=== PATIENT | female | born 1960 | race Caucasian/White ===

== ENCOUNTER 2025-06-27 18:05 | Emergency (ER) | payer BC, SELFPAY ==
[2025-06-27 18:06] VITALS: BP 170/103
[2025-06-27 18:33] LABS: Hematocrit 47.6 % (37.0-47.0); Hemoglobin 16.1 g/dL (12.0-16.0); Mean Corp Hgb Conc. 33.8 g/dL (33.0-37.0); Mean Corpuscular Volume 84.1 fL (81.0-99.0); Nucleated Red Blood Cells % 0 %; Platelet Count 361 10^3/uL (130-400); Red Cell Dist. Width 12.2 % (11.5-14.5)
[2025-06-27 18:52] LABS: ALT (SGPT) 19 U/L (0-35); AST (SGOT) 18 U/L (14-36); Albumin 5.3 g/dl (3.5-5.0); Alkaline Phosphatase 66 U/L (38-126); Blood Urea Nitrogen 18 mg/dl (7-17); Calcium 10.3 mg/dl (8.4-10.2); Carbon Dioxide 28 mmol/L (22-30); Chloride 99 mmol/L (98-107); Glucose 125 mg/dl (70-99); Lipase 99 U/L (23-300); Potassium 4.1 mmol/L (3.5-5.1); Sodium 136 mmol/L (135-145); Total Protein 8.5 g/dl (6.3-8.2); eGFR > 60.00
[2025-06-27 19:19] LABS: Urine Character Slightly Cloudy (Clear)
[2025-06-27] MEDS: TORADOL 15 MG IV (19:23)
[2025-06-27] MEDS: NSS 1000 IV (19:23)
--- NOTE | 2025-06-27 19:23 | ED.GENMED ---
History of Present Illness
General
Chief Complaint: Back Pain
Source: patient and family (Daughter at bedside)
Exam Limitations: none
Time Seen by Provider: 06/27/25 18:46
Nursing documentation reviewed up to this point in time: agreed with
History of Present Illness
History of Present Illness:
Patient is a 65-year-old female with history hypertension who presents to the emergency department for evaluation of left lower back pain associated vomiting. Patient describes approximately 2�3 weeks of left lower back pain with acute worsening
yesterday afternoon around 3 PM. She describes it as a sharp pain in her left lower back with some radiation around her side however does not extend down her leg. Today, she had a few episodes of vomiting. Patient denies any fever or chills. No
dysuria. No chest pain or shortness of breath. No numbness/tingling or weakness and lower extremities. No bowerl/bladder incontinence.
She has not had any inciting injury or trauma.
Of note � patient was seen at an outside emergency department a few weeks ago for similar pain where she had a negative work-up at that time. She has since followed up with a spine surgeon and has an MRI scheduled for June. She has been taking
Tylenol and Motrin with only temporary relief. She did recently finish a medrol dose pack which did temporarily improve her symptoms.
Past History
Past History
ED Past Medical History: HTN
ED Past Surgical History: None
Review of Systems
Review of Systems
Allergies reviewed?: Yes
All Other Systems: ROS reviewed and negative except as documented in HPI and ROS
Phy Exam
Physical Exam
Physical Exam:
Vitals: Hypertensive, otherwise vital signs stable. Afebrile
General: Patient is uncomfortable appearing due to pain.
Skin: Warm and dry, no rashes or lesions
Head: Normocephalic, atraumatic
Eyes: Sclera nonicteric.
Throat: Protecting airway
Neck: Normal ROM, no cervical spine tenderness, no meningismus
Cardiac: Regular rate and rhythm, no murmurs.
Pulm: Normal respiratory effort. Lungs clear bilaterally.
Abdomen: Abdomen soft and nontender
Back: Reproducible tenderness in left paralumbar region. No rash. Negative straight leg raise bilaterally.
Extremities: No evidence of cyanosis or edema. Strength 5/5 in bilateral upper and lower extremities. Sensation intact.
Neuro: AAOx3. Grossly intact.
Psychiatric: Normal affect.
Course
Orders/Labs/Results
Orders:
Orders
06/27/25 18:23
Urinalysis Reflex To Culture Urgent
Date Specimen was Collected: 06/27/25
Time Specimen was Collected: 18:16
Urine Microscopic Reflex Cult Urgent
06/27/25 18:27
Complete Blood Count/With Diff Urgent
Comprehensive Metabolic Panel Urgent
Lipase Urgent
06/27/25 19:11
CT Abd/pelvis W Iv Cont Urgent
Comment:
Reason For Exam: L lower back pain, vomiting
0.9% Sodium Chloride 1000 ml [Nss] 1,000 ml IV BOLUS
Ketorolac [Toradol] 15 mg IV NOW STA
Lidocaine [Lidocaine 4% Patch] 1 patch TOPICAL NOW STA
Apply Lidocaine patch(s) to:: Left lower back
06/27/25 21:02
HYDROmorphone [Dilaudid] 0.5 mg IV NOW STA
Abnormal Lab Results
06/27/25 06/27/25
18:23 18:27
WBC 11.7 H 10^3/uL
(4.8-10.8)
RBC 5.66 H 10^6/uL
(4.20-5.40)
Hgb 16.1 H g/dL
(12.0-16.0)
Hct 47.6 H %
(37.0-47.0)
Abs Immat Gran (auto) 0.1 H 10^3/uL
(0-0.05)
Absolute Neuts (auto) 8.2 H 10^3/uL
(1.4-6.5)
Absolute Monos (auto) 0.7 H 10^3/uL
(0.1-0.6)
BUN 18 H mg/dl
(7-17)
Glucose 125 H mg/dl
(70-99)
Calcium 10.3 H mg/dl
(8.4-10.2)
Total Protein 8.5 H g/dl
(6.3-8.2)
Albumin 5.3 H g/dl
(3.5-5.0)
Ur Occult Blood Reflex 2+ A
(Negative)
Urine RBC 3-6 A /HPF
(0-2)
Urine Bacteria (Reflex) Few A
(Negative)
Urine Albumin (Reflex) 2+ A
(Neg - Trace)
06/27/25 18:27
06/27/25 18:27
Vital Signs
Initial and Last Documented VS:
Initial Vital Signs
Temp Pulse Resp BP Pulse Ox
98.3 F 85 18 170/103 97
06/27/25 18:06 06/27/25 18:06 06/27/25 18:06 06/27/25 18:06 06/27/25 18:06
Last Documented Vital Signs
Temp Pulse Resp BP Pulse Ox
98.3 F 56 18 165/80 98
06/27/25 18:06 06/27/25 19:35 06/27/25 19:35 06/27/25 22:00 06/27/25 22:15
MDM/Problems Addressed
Differential Diagnosis Includes:
Not limited to: muscle spasm, radicular pain, renal colic, pyelonephritis, diverticulitis, etc
MDM/Problems Addressed:
65-year-old female with left lower back pain associated w/ a few episodes of vomiting. Pain worse with movement. Had similar episode two weeks ago with negative workup in outside emergency department. No fevers or urinary symptoms. Patient
hypertensive on arrival, otherwise stable.
On exam � she appears uncomfortable due to pain however nontoxic. Cardio/pulmonary assessment unremarkable. Abdomen benign. She does have reproducible tenderness in left paralumbar spinal region. No neurologic deficits concerning for cauda equine.
She has equal strength bilaterally.
Differential as above. Clinical picture seems most consistent with likely musculoskeletal etiology/ radicular pain, however with no trauma and vomiting � will work-up further to r/o alternative diagnosis.
ED plan: labs, UA, CT scan abdomen/pelvis w/ IV contrast. Will treat pain and reassess.
Update: Labs without clinically significant abnormalities. Mild leukocytosis. UA reveals no evidence of infection although few RBCs noted. CT scan without acute intra-abdominal pathology.
Patients pain is currently well controlled after medication here. Work up negative. Suspect likely musculoskeletal etiology. No findings suggestive for intra-abdominal source or vascular emergency.
Will discharge home with additional course of steroids and pain control. She has MRI scheduled and planning to follow-up with spine surgeon and start PT. Strict return precautions discussed.
Chronic conditions affecting care:
HTN
Acute Exacerbation and/or Progression of Chronic Illness:
Acutely hypertensive
*Radiology
Radiology exam reviewed: radiology read reviewed
*Pulse Oximetry
SaO2: 97
Oxygen Mode of Delivery: Room air
Patient hypoxic: no
*EKG
Interpreted by ED Provider?: NA
*Rolloff Driver Interpretation
Rate: Rolloff Driver- N/A
*Critical Care Note
Total Time (30-74mins, 75-104mins- exclusive of procedures): Not Applicable
ED Attending Note
-
Portions of this chart may have been created with voice recognition software.� Occasional wrong word or��sound alike� substitutions may have occurred due to the inherent limitations of voice recognition software.
Discharge Plan
Departure
Patient Disposition: Home (Routine Discharge)
Date of Disposition: 06/27/25
Time of Disposition: 22:20
Patient with high blood pressure during this ER visit?: Yes
Condition: Good
Covid-19: Not Applicable
Discharge Problem:
Low back pain
Instructions: Low Back Pain (DC), BLOOD PRESSURE
Prescriptions:
New
prednisone 10 mg Tablet
See Rx Instructions .ROUTE .COMPLEX Qty: 30 0RF
Rx Instructions:
Take By Mouth:
40 mg daily x3 days, 30 mg daily x3 days,
20 mg daily x3 days, 10 mg daily x3 days.
tramadol 50 mg tablet
50 mg PO Q6H PRN (Reason: Pain) Qty: 10 0RF
No Action
valsartan 80 mg Tablet
80 mg PO DAILY
Referrals:
UNKNOWN - PT DOES,NOT KNOW [Family Provider]
Activity Restrictions/Additional Instructions:
RETURN TO THE EMERGENCY DEPARTMENT ANY FEVER, INTRACTABLE PAIN, PERSISTENT VOMITING, URINARY SYMPTOMS, NUMBNESS/TINGLING OR WEAKNESS IN LOWER EXTREMITIES, LOSS OF BLADDER/BOWEL CONTROL, WORSENING IN CURRENT SYMPTOMS, OR ANY OTHER CONCERNS
- As discussed�your CT scan showed no acute abnormalities. Your urinalysis did show a few red blood cells. Please ensure this resolves with a urologist.
- You continue to take Tylenol and/or Motrin as needed for pain. For intractable pain, you can try tramadol. This may cause drowsiness you should not take prior to driving. You should not take tramadol in addition to cyclobenzaprine.
- A prescription for a steroid course has been sent to your pharmacy. Please take as directed.
- Follow-up with primary care next week for further evaluation/management to ensure their symptoms are improving. Please also follow-up for MRI as scheduled.
Monitor your symptoms closely and return to the emergency department with any acute worsening/new symptoms or any other concerns
Interventions
Interventions:
*Risk Screen - Suicide Last Done: 06/27/25 18:06
*General Assessment Last Done: 06/27/25 18:06
*Neglect/Abuse Screening Last Done: 06/27/25 21:16
*ED- Fall Risk Assessment Last Done: 06/27/25 19:33
*ED COVID-19 Vaccine History Last Done: 06/27/25 18:06
*ED Influenza Vaccine History Last Done: 06/27/25 18:06
*Nursing Disposition Last Done: 06/27/25 22:42
ED-Musculoskeletal Assessment Last Done: 06/27/25 19:34
Discharge Date and Time
Discharge Date/Time: 06/27/25 22:44
Print Language: SLOVENIAN
[2025-06-27] MEDS: LIDOCAINE 4% PATCH 1 PATCH TOPICAL (19:24)
[2025-06-27 19:35] VITALS: BP 172/92
[2025-06-27 19:43] LABS: Urine Squamous Cell >30 /LPF (Few)
[2025-06-27] MEDS: DILAUDID 0.5 MG IV (21:09)
[2025-06-27 21:13] VITALS: BP 167/79
[2025-06-27 22:00] VITALS: BP 165/80
== END 2025-06-27 22:44 | disposition home or self-care (01) ==
LOC: EMR 18:05
PROVIDERS: Emergency Medicine; EMERGENCY PHYSICIAN Emergency Medicine
DX: M54.50 Low back pain, unspecified (principal); I10 Essential (primary) hypertension; D72.829 Elevated white blood cell count, unspecified
CPT/HCPCS: 96374; 96375; 96361; 99284; 74177; 80053; 81003; 81015; 83690; 85025; Q9967